=== PATIENT | male | born 1995 | race Caucasian/White ===

== ENCOUNTER 2017-09-11 15:16 | Emergency (ER) | payer SELFPAY ==
[~2017-09-11] VITALS: Ht 180.3 cm; Wt 74.8 kg
[2017-09-11 15:33] VITALS: BP 116/70
[2017-09-11 16:45] VITALS: BP 116/70
== END 2017-09-11 16:48 | disposition home or self-care (01) ==
LOC: MED 15:16
DX: S60.222A Contusion of left hand, initial encounter (principal); V89.2XXA Person injured in unspecified motor-vehicle accident, traffic, initial encounter; Y93.I9 Activity, other involving external motion; Y92.488 Other paved roadways as the place of occurrence of the external cause; Y99.8 Other external cause status
CPT/HCPCS: 73130; 99284